=== PATIENT | female | born 1985 | race African-American/Black ===

== ENCOUNTER 2017-05-30 17:41 | Emergency (ER) | payer MEDICAID, OTHER ==
[~2017-05-30] VITALS: Ht 157.5 cm; Wt 108.9 kg
[~2017-05-30 17:41] MED LIST: METR0.7528 VAGINAL
[2017-05-30 17:43] VITALS: BP 136/75; PULSE 91; RESP 20; TEMP 98.1; O2SAT 100
[2017-05-30] MEDS ORDERED: iron PO (18:02)
[2017-05-30] MEDS ORDERED: ONDANSETRON ODT 4 MG TAB PO ONE (18:15)
[2017-05-30] MEDS ORDERED: ZOFR4TAB3 SL (18:18)
--- NOTE | 2017-05-30 18:22 | PD ---
HPI Chief Complaint: GI Complaint Time Seen by Provider: 17:58 Travel History International Travel<30 days: No Contact w/Intl Traveler<30days: No Traveled to known affect area: No History of Present Illness HPI The patient was seen and examined in the presence of the nurse. This patient complains of a one-day history of nausea and vomiting and diarrhea. She's had 3 episodes of diarrhea today. It's liquid and runny without blood or mucus. She's had no fever. Severity is moderate. No ill contacts. She has had some intermittent diffuse abdominal cramping but nothing sustained. No history of abdominal problems. No vaginal discharge or bleeding. PFSH Past Medical History Anemia: Yes Diminished Hearing: No Influenza Vaccination: No ?: Not LMP: 04/2017 Past Surgical History Section: Yes Social History Alcohol Use: No Tobacco Use: No Substance Use: No Allergies-Medications (Allergen,Severity, Reaction): Coded Allergies: No Known Allergies (Verified Adverse Reaction, Unknown, 05/30/17) Reported Meds & Prescriptions Reported Meds & Active Scripts Active Zofran Odt (Ondansetron Odt) 4 Mg Tab 4 Mg SL Q6HR PRN Metrogel Vaginal Gel (Metronidazole Vaginal Gel) 0.75 % Gel 1 Appl VAGINAL HS Reported [iron] 27 Mg PO DAILY Review of Systems General / Constitutional: No: Fever HENT: No: Headaches Cardiovascular: No: Chest Pain or Discomfort Respiratory: No: Cough Gastrointestinal: Positive: Nausea, Vomiting, Diarrhea Physical Exam Narrative GENERAL: Well-nourished, well-developed patient in no apparent distress. SKIN: Focused skin assessment reveals no rash and nodules. Skin is Warm and dry. HEAD: Atraumatic. Normocephalic. EYES: Pupils equal and round. No scleral icterus. No injection or drainage. ENT: No nasal bleeding or discharge. Mucous membranes pink and moist. NECK: Trachea midline. No JVD. CARDIOVASCULAR: Regular rate and rhythm. No murmur appreciated. RESPIRATORY: No accessory muscle use. Clear to auscultation. Breath sounds equal bilaterally. GASTROINTESTINAL: Abdomen soft, minimal diffuse tenderness without rebound or guarding , nondistended. Hepatic and splenic margins not palpable. MUSCULOSKELETAL: No obvious deformities. No clubbing. No cyanosis. No edema. NEUROLOGICAL: Awake and alert. No obvious cranial nerve deficits. Motor grossly within normal limits. Normal speech. PSYCHIATRIC: Appropriate mood and affect; insight and judgment normal. Data Data Last Documented VS Vital Signs Date Time Temp Pulse Resp B/P (MAP) Pulse Ox O2 Delivery O2 Flow Rate FiO2 05/30/17 17:43 98.1 91 20 136/75 (95) 100 Orders Orders Ondansetron Odt (Zofran Odt) (05/30/17 18:15) Ed Urine Pregnancytest Poc (05/30/17 18:18) MDM Medical Decision Making Medical Screen Exam Complete: Yes Emergency Medical Condition: Yes Medical Record Reviewed: Yes Differential Diagnosis Gastroenteritis, colitis, food poisoning Narrative Course I have reviewed the patient's electronic medical record. Urine is negative Vital signs and normal She is well-hydrated Has a soft benign abdomen without any localized tenderness No clinical suspicion of appendicitis. She is having primarily diarrhea with some nausea and vomiting I gave her dose of Zofran and prescription for same I have recommended clear liquids for 24 hours, then gradually advance as tolerated. Advised to return if she worsens Diagnosis Primary Impression: Nausea vomiting and diarrhea Additional Instructions: The patient was advised to follow up with their physician and return if they worsen. I have recommended clear liquids for 24 hours, then gradually advance as tolerated. Med/Other Pt SpecificInfo: Prescription(s) given Scripts Ondansetron Odt (Zofran Odt) 4 Mg Tab 4 MG SL Q6HR Y for Nausea/Vomiting, #12 TAB 0 Refills Prov: Kyle Felton MD 05/30/17 Disposition: 01 DISCHARGE HOME Condition: Stable Kyle Felton MD May 30, 2017 18:22
[2017-06-03] MEDS ORDERED: LEVO1IUD4 I-UTERINE (15:45)
[2017-06-10] MEDS ORDERED: METR1TAB76 PO (10:49)
== END 2017-05-30 18:34 | disposition home or self-care (01) ==
LOC: PHED 17:41
DX: R11.2 Nausea with vomiting, unspecified (principal); R19.7 Diarrhea, unspecified; R10.84 Generalized abdominal pain; Z86.2 Personal history of diseases of the blood and blood-forming organs and certain disorders involving the immune mechanism
CPT/HCPCS: 84703; 99283

== ENCOUNTER 2017-07-27 07:02 | Emergency (ER) | payer MEDICAID ==
[~2017-07-27] VITALS: Ht 154.9 cm; Wt 109.0 kg
[~2017-07-27 07:02] MED LIST changes: +LEVO1IUD4 I-UTERINE; -METR0.7528 VAGINAL; +METR1TAB76 PO; +ZOFR4TAB3 SL; +iron PO
[2017-07-27 07:03] VITALS: BP 138/83; PULSE 96; RESP 16; TEMP 98.5; O2SAT 98
[2017-07-27] MEDS ORDERED: FERR325T18 PO (07:19)
[2017-07-27] MEDS ORDERED: SODIUM CHLORIDE 0.9% FLUSH 10 ML FLUSH IVF PRN (07:30)
[2017-07-27] MEDS ORDERED: ONDANSETRON HCL 4 MG/2 ML VIAL IVP ONE (07:30)
--- NOTE | 2017-07-27 07:38 | PD ---
HPI . Abdominal pain Chief Complaint: Complaint Time Seen by Provider: 07:25 Travel History International Travel<30 days: No Contact w/Intl Traveler<30days: No Traveled to known affect area: No History of Present Illness HPI Patient presents with chief complaint of right lower quadrant abdominal pain. Onset was yesterday. Pain is exacerbated by lying down and improved by sitting upright. Pain has been unrelieved by warm towels. Pain rated 8/10. Associated with dysuria, frequency and urgency which started about a week ago. She reports the insertion of an IUD in May. She reports no problems with the IUD since the insertion. That is, she did not have any unusual cramping, pain or bleeding following the insertion of the IUD. [facility] Past Medical History Anemia: Yes Diminished Hearing: No ?: Not LMP: nov-iud recently placed Past Surgical History Section: Yes Social History Alcohol Use: No Tobacco Use: No Substance Use: No Allergies-Medications (Allergen,Severity, Reaction): Coded Allergies: No Known Allergies (Verified Adverse Reaction, Unknown, 07/27/17) Reported Meds & Prescriptions Reported Meds & Active Scripts Active Pyridium (Phenazopyridine HCl) 200 Mg Tablet 1 Tab PO Q6HR Macrobid (Nitrofurantoin Monoh/Nitrofur Macro) 100 Mg Cap 100 Mg PO BID 5 Days Reported Ferrous Sulfate 325 Mg (65 Mg Iron) Tablet 325 Mg PO DAILY Review of Systems Except as stated in HPI: all other systems reviewed are Neg General / Constitutional: No: Fever, Chills Cardiovascular: No: Chest Pain or Discomfort Respiratory: Positive: Cough, No: Shortness of Breath Gastrointestinal: Positive: Abdominal Pain, No: Nausea, Vomiting, Diarrhea Genitourinary: Positive: Urgency, Frequency, Dysuria, Vaginal Bleeding ( vaginal spotting), Other (no vaginal itching), No: Discharge Physical Exam Narrative GENERAL: Awake and alert and in no acute distress. SKIN: warm/dry. HEAD: Normocephalic. Atraumatic. EYES: Pupils equal and round. No scleral icterus. No injection or drainage. ENT: No nasal bleeding or discharge. Mucous membranes pink and moist. NECK: Trachea midline. Full range of motion without pain.. CARDIOVASCULAR: Regular rate and rhythm. RESPIRATORY: No accessory muscle use. Clear to auscultation. Breath sounds equal bilaterally. GASTROINTESTINAL: Abdomen soft. Minimal right-sided tenderness with no guarding or rebound. Negative Borrego sign. No tenderness in the right upper quadrant. Bowel sounds present. Nondistended. MUSCULOSKELETAL: No obvious deformities. NEUROLOGICAL: Awake and alert. No obvious cranial nerve deficits. Motor grossly within normal limits. Normal speech. PSYCHIATRIC: Appropriate mood and affect; insight and judgment normal. Data Data Last Documented VS Vital Signs Date Time Temp Pulse Resp B/P (MAP) Pulse Ox O2 Delivery O2 Flow Rate FiO2 07/27/17 07:03 98.5 96 16 138/83 (101) 98 Orders Orders Complete Blood Count With Diff (07/27/17 07:25) Basic Metabolic Panel (Bmp) (07/27/17 07:25) Urinalysis - C+S If Indicated (07/27/17 07:25) Sodium Chloride 0.9% Flush (Ns Flush) (07/27/17 07:30) Ondansetron Inj (Zofran Inj) (07/27/17 07:30) Ed Urine Pregnancytest Poc (07/27/17 07:25) Ct Abd/Pel W/O Iv Contrast (07/27/17 07:25) Morphine Inj (Morphine Inj) (07/27/17 07:45) Urine Culture (07/27/17 07:41) Ceftriaxone Inj (Rocephin Inj) (07/27/17 08:15) Labs Laboratory Tests Test 07/27/17 07:41 White Blood Count 9.9 TH/MM3 Red Blood Count 4.23 MIL/MM3 Hemoglobin 9.8 GM/DL Hematocrit 31.4 % Mean Corpuscular Volume 74.1 FL Mean Corpuscular Hemoglobin 23.1 PG Mean Corpuscular Hemoglobin Concent 31.1 % Red Cell Distribution Width 16.0 % Platelet Count 496 TH/MM3 Mean Platelet Volume 7.7 FL Neutrophils (%) (Auto) 67.3 % Lymphocytes (%) (Auto) 21.3 % Monocytes (%) (Auto) 9.3 % Eosinophils (%) (Auto) 1.7 % Basophils (%) (Auto) 0.4 % Neutrophils # (Auto) 6.7 TH/MM3 Lymphocytes # (Auto) 2.1 TH/MM3 Monocytes # (Auto) 0.9 TH/MM3 Eosinophils # (Auto) 0.2 TH/MM3 Basophils # (Auto) 0.0 TH/MM3 CBC Comment AUTO DIFF Differential Comment AUTO DIFF CONFIRMED Platelet Estimate HIGH Platelet Morphology Comment NORMAL Ovalocytes 1+ Urine Collection Type VOIDED Urine Color YELLOW Urine Turbidity MOD Urine pH 7.0 Urine Specific Gilchrist 1.010 Urine Protein 30 mg/dL Urine Glucose (UA) NEG mg/dL Urine Ketones NEG mg/dL Urine Occult Blood LARGE Urine Nitrite NEG Urine Bilirubin NEG Urine Leukocyte Esterase LARGE Urine RBC INNUM /hpf Urine WBC INNUM /hpf Urine WBC Clumps FEW Urine Squamous Epithelial Cells >8 /hpf Urine Bacteria FEW /hpf Microscopic Urinalysis Comment CULTURE INDICATED Blood Urea Nitrogen 8 MG/DL Creatinine 0.67 MG/DL Random Glucose 118 MG/DL Calcium Level 8.2 MG/DL Sodium Level 136 MEQ/L Potassium Level 3.8 MEQ/L Chloride Level 104 MEQ/L Carbon Dioxide Level 24.2 MEQ/L Anion Gap 8 MEQ/L Estimat Glomerular Filtration Rate 122 ML/MIN [facility] Medical Decision Making Medical Screen Exam Complete: Yes Emergency Medical Condition: Yes Differential Diagnosis Differential diagnosis of abdominal pain includes but is not limited to gastritis, pancreatitis, hepatitis, gastroenteritis, gallbladder disease, constipation, urinary retention, UTI, peptic ulcer disease, diverticulitis or appendicitis Narrative Course This patient presents with a chief complaint of right lower quadrant abdominal pain. The pain was preceded by urinary tract symptoms including dysuria, frequency and urgency. She does not have any concerning GI symptoms such as vomiting or diarrhea. She has not been running a fever. Her abdominal exam shows mild right lower quadrant tenderness. CBC & BMP Diagram 07/27/17 07:41 Calcium Level 8.2 L UA>>large blood, large LE, innum RBCs, innum WBCs, few WBC clumps, few bact CT: 1. 0.4 cm cyst in the right ovary. 2. Incidental IUD. 3. The examination is otherwise within normal limits. This patient will be treated with Rocephin here and then discharged on Macrobid and Pyridium. Diagnosis Primary Impression: Abdominal pain Qualified Codes: R10.31 - Right lower quadrant pain Additional Impression: Urinary tract infection Qualified Codes: N30.00 - Acute cystitis without hematuria Patient Instructions: General Instructions, Urinary Tract Infection in Women ( [place]) Med/Other Pt SpecificInfo: Prescription(s) given Scripts Phenazopyridine HCl (Pyridium) 200 Mg Tablet 1 TAB PO Q6HR for Dysuria, #10 Prov: Oeters,Mayuri Baca MD 07/27/17 Nitrofurantoin Monohydrate Macrocrystals (Macrobid) 100 Mg Cap 100 MG PO BID for Infection for 5 Days, #10 CAP 0 Refills Prov: Mayuri Block MD 07/27/17 Disposition: 01 DISCHARGE HOME Condition: Stable Mayuri Block MD Jul 27, 2017 07:38
[2017-07-27] MEDS ORDERED: MORPHINE SULFATE 2 MG/ML INJ IV PUSH ONE (07:45)
[2017-07-27 07:47] LABS: BILIRUBIN, URINE NEG (NEG); BLOOD, URINE LARGE (NEG); GLUCOSE,URINE NEG (NEG); KETONE, URINE NEG (NEG); NITRITE,URINE NEG (NEG); URINE LEUKOCYTE ESTERASE LARGE (NEG)
[2017-07-27 07:49] LABS: AUTOMATED NEUTROPHIL # 6.7 TH/MM3 (1.8-7.7); BASOPHIL % 0.4 % (0.0-2.0); EOSINOPHIL # 0.2 TH/MM3 (0-0.4); EOSINOPHIL % 1.7 % (0.0-4.0); HEMATOCRIT 31.4 % (35.0-46.0); HEMOGLOBIN 9.8 GM/DL (11.6-15.3); LYMPH % 21.3 % (9.0-44.0); LYMPHOCYTE # 2.1 TH/MM3 (1.0-4.8); MEAN CELL VOLUME 74.1 FL (80.0-100.0); MEAN CORPUSCULAR HEMOGLOBIN 23.1 PG (27.0-34.0); MEAN CORPUSCULAR HGB CONC 31.1 % (32.0-36.0); MEAN PLATELET VOLUME 7.7 FL (7.0-11.0); MONO % 9.3 % (0.0-8.0); MONOCYTE # 0.9 TH/MM3 (0-0.9); NEUT % 67.3 % (16.0-70.0); PLATELET COUNT 496 TH/MM3 (150-450); RED BLOOD COUNT 4.23 MIL/MM3 (4.00-5.30); WHITE BLOOD COUNT 9.9 TH/MM3 (4.0-11.0)
[2017-07-27 07:55] LABS: URINE COLOR YELLOW (YELLW/STRAW)
[2017-07-27 07:57] LABS: BACTERIA, URINE FEW /hpf; CALCIUM 8.2 MG/DL (8.5-10.1); RBC, URINE INNUM /hpf (0-3); SQUAMOUS EPITHELIAL CELL URINE >8 /hpf (0-5); WBC, URINE INNUM /hpf (0-5); WHITE BLOOD CELL CLUMPS FEW
[2017-07-27 07:58] LABS: BICARBONATE 24.2 MEQ/L (21.0-32.0)
[2017-07-27 08:01] LABS: CREATININE 0.67 MG/DL (0.50-1.00)
[2017-07-27] MEDS ORDERED: PHEN-510 PO (08:15)
[2017-07-27] MEDS ORDERED: cefTRIAXone INJ 1,000 MG in SODIUM CHLORIDE 0.9% INJ 100 ML IV ONE (08:15)
[2017-07-27] MEDS ORDERED: MACR100C2 PO (08:15)
[2017-07-27 08:16] LABS: OVALOCYTES 1+ (NORMAL)
--- NOTE | 2017-07-27 08:28 | RADRPT ---
EXAM DATE/TIME: 07/27/2017 07:54 [place] COMPARISON: No previous studies available for comparison. INDICATIONS : Right sided abdominal pain with urinary burning and frequency. ORAL CONTRAST: No oral contrast ingested. RADIATION DOSE: 22.43 CTDIvol (mGy) MEDICAL HISTORY : None SURGICAL HISTORY : section. ENCOUNTER: Initial ACUITY: 3 days PAIN SCALE: 4/10 LOCATION: Right abdomen TECHNIQUE: Volumetric scanning of the abdomen and pelvis was performed. Using automated exposure control and ad justment of the mA and/or kV according to patient size, radiation dose was kept as low as reasonably achievable to obtain optimal diagnostic quality images. DICOM format image data is available electro nically for review and comparison. FINDINGS: LOWER LUNGS: The visualized lower lungs are clear. LIVER: Homogeneous density without lesion. There is no dilation of the biliary tree. No calcified gallston es. SPLEEN: Normal size without lesion. PANCREAS: Within normal limits. KIDNEYS: Normal in size and shape. There is no mass, stone, or hydronephrosis. ADRENAL GLANDS: Within normal limits. VASCULAR: There is no aortic aneurysm. BOWEL/MESENTERY: The stomach, small bowel, and colon demonstrate no acute abnormality. There is no free intraperitone al air or fluid. ABDOMINAL WALL: Within normal limits. RETROPERITONEUM: There is no lymphadenopathy. BLADDER: No wall thickening or mass. REPRODUCTIVE: Incidental note is made of an IUD. The examination also demonstrates a 2.4 cm cyst within the right o vary. INGUINAL: There is no lymphadenopathy or hernia. MUSCULOSKELETAL: Within normal limits for patient age. CONCLUSION: 1. 0.4 cm cyst in the right ovary. 2. Incidental IUD. 3. The examination is otherwise within normal limits. Kleber Faulkner MD on July 27, 2017 at 8:21 Board Certified Radiologist. This report was verified electronically.
[2017-07-27 08:45] VITALS: BP 103/61; PULSE 82; RESP 16; O2SAT 100
[2017-07-27 09:42] VITALS: BP 156/74; PULSE 74; RESP 16; O2SAT 98
[2017-08-10] MEDS ORDERED: OSEL75 PO (15:19)
== END 2017-07-27 10:33 | disposition home or self-care (01) ==
LOC: PHED 07:02
DX: R10.31 Right lower quadrant pain (principal); N30.00 Acute cystitis without hematuria; D64.9 Anemia, unspecified
CPT/HCPCS: 74176; 80048; 81001; 84703; 85025; 87086; 96374; 96375; 99285; J0696; J2270; J2405

== ENCOUNTER 2017-09-03 16:00 | Emergency (ER) | payer MEDICAID ==
[~2017-09-03] VITALS: Ht 154.9 cm; Wt 110.7 kg
[~2017-09-03 16:00] MED LIST changes: +FERR325T18 PO; -METR1TAB76 PO; +OSEL75 PO; -ZOFR4TAB3 SL; -iron PO
[2017-09-03 16:10] VITALS: BP 151/79; PULSE 102; RESP 16; TEMP 98.6; O2SAT 100
--- NOTE | 2017-09-03 16:36 | PD ---
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 This patient complains of vaginal bleeding. She's had intermittent vaginal bleeding problems for the last 3 months, ever since her IUD was placed. She called her [employer] [employer] WORKER physician but was told to come here because they couldn't fit her in. No presyncopal symptoms. No vaginal discharge other than bleeding. Symptoms severity is moderate. No exacerbating factors. No alleviating factors. PFSH Past Medical History Anemia: Yes Diminished Hearing: No ?: Unknown LMP: 08/16/17 Past Surgical History Section: Yes Social History Alcohol Use: No Tobacco Use: No Substance Use: No Allergies-Medications (Allergen,Severity, Reaction): Coded Allergies: No Known Allergies (Verified Adverse Reaction, Unknown, 09/03/17) Reported Meds & Prescriptions Reported Meds & Active Scripts Active Reported Ferrous Sulfate 325 Mg (65 Mg Iron) Tablet 325 Mg PO DAILY Review of Systems General / Constitutional: No: Fever Eyes: No: Visual changes HENT: No: Headaches Cardiovascular: No: Chest Pain or Discomfort Respiratory: No: Shortness of Breath Gastrointestinal: No: Abdominal Pain Genitourinary: Positive: Vaginal Bleeding, No: Dysuria Musculoskeletal: No: Pain Skin: No Rash Neurologic: No: Weakness Psychiatric: No: Depression Endocrine: No: Polydipsia Hematologic/Lymphatic: No: Easy Bruising Physical Exam Narrative GENERAL: Well-nourished, well-developed patient in no apparent distress. SKIN: Focused skin assessment reveals no rash and nodules. Skin is Warm and dry. HEAD: Atraumatic. Normocephalic. EYES: Pupils equal and round. No scleral icterus. No injection or drainage. ENT: No nasal bleeding or discharge. Mucous membranes pink and moist. NECK: Trachea midline. No JVD. CARDIOVASCULAR: Regular rate and rhythm. No murmur appreciated. RESPIRATORY: No accessory muscle use. Clear to auscultation. Breath sounds equal bilaterally. GASTROINTESTINAL: Abdomen soft, non-tender, nondistended. Hepatic and splenic margins not palpable. MUSCULOSKELETAL: No obvious deformities. No clubbing. No cyanosis. No edema. NEUROLOGICAL: Awake and alert. No obvious cranial nerve deficits. Motor grossly within normal limits. Normal speech. PSYCHIATRIC: Appropriate mood and affect; insight and judgment normal. Data Data Last Documented VS Vital Signs Date Time Temp Pulse Resp B/P (MAP) Pulse Ox O2 Delivery O2 Flow Rate FiO2 09/03/17 16:10 98.6 102 16 151/79 (103) 100 Orders Orders Ed Urine Pregnancytest Poc (09/03/17 16:29) Complete Blood Count With Diff (09/03/17 16:29) Iv Access Insert/Monitor (09/03/17 16:29) Labs Laboratory Tests Test 09/03/17 16:34 White Blood Count 9.9 TH/MM3 Red Blood Count 4.17 MIL/MM3 Hemoglobin 10.3 GM/DL Hematocrit 31.0 % Mean Corpuscular Volume 74.5 FL Mean Corpuscular Hemoglobin 24.8 PG Mean Corpuscular Hemoglobin Concent 33.2 % Red Cell Distribution Width 18.9 % Platelet Count 509 TH/MM3 Mean Platelet Volume 7.8 FL Neutrophils (%) (Auto) 57.2 % Lymphocytes (%) (Auto) 28.1 % Monocytes (%) (Auto) 10.2 % Eosinophils (%) (Auto) 2.0 % Basophils (%) (Auto) 2.5 % Neutrophils # (Auto) 5.7 TH/MM3 Lymphocytes # (Auto) 2.8 TH/MM3 Monocytes # (Auto) 1.0 TH/MM3 Eosinophils # (Auto) 0.2 TH/MM3 Basophils # (Auto) 0.2 TH/MM3 CBC Comment AUTO DIFF MDM Medical Decision Making Medical Screen Exam Complete: Yes Emergency Medical Condition: Yes Medical Record Reviewed: Yes Differential Diagnosis Ectopic, dysfunction uterine bleeding, fibroids, symptomatic anemia Narrative Course I have reviewed the patient's electronic medical record. Reviewed her last visit here. She has O+ blood type. IV placed CBC shows hemoglobin of 10.3 which is higher than prior Urine is negative Stable hemodynamically for outpatient follow-up with [employer]. Diagnosis Primary Impression: Vaginal bleeding Additional Instructions: Follow-up with [employer] CL[employer] Med/Other Pt SpecificInfo: Other Disposition: 01 DISCHARGE HOME Condition: Stable Kyle Felton MD Sep 03, 2017 16:36
[2017-09-03 16:45] LABS: AUTOMATED NEUTROPHIL # 5.7 TH/MM3 (1.8-7.7); BASOPHIL # 0.2 TH/MM3 (0-0.2); BASOPHIL % 2.5 % (0.0-2.0); EOSINOPHIL # 0.2 TH/MM3 (0-0.4); HEMOGLOBIN 10.3 GM/DL (11.6-15.3); LYMPH % 28.1 % (9.0-44.0); LYMPHOCYTE # 2.8 TH/MM3 (1.0-4.8); MEAN CELL VOLUME 74.5 FL (80.0-100.0); MEAN CORPUSCULAR HEMOGLOBIN 24.8 PG (27.0-34.0); MEAN CORPUSCULAR HGB CONC 33.2 % (32.0-36.0); MEAN PLATELET VOLUME 7.8 FL (7.0-11.0); MONO % 10.2 % (0.0-8.0); NEUT % 57.2 % (16.0-70.0); PLATELET COUNT 509 TH/MM3 (150-450); RED BLOOD COUNT 4.17 MIL/MM3 (4.00-5.30); RED CELL DISTRIBUTION WIDTH 18.9 % (11.6-17.2); WHITE BLOOD COUNT 9.9 TH/MM3 (4.0-11.0)
== END 2017-09-03 17:44 | disposition home or self-care (01) ==
LOC: PHED 16:00
DX: N93.9 Abnormal uterine and vaginal bleeding, unspecified (principal); Z97.5 Presence of (intrauterine) contraceptive device
CPT/HCPCS: 84703; 85025; 99283

== ENCOUNTER 2018-01-07 09:28 | Emergency (ER) | payer MEDICAID ==
[~2018-01-07 09:28] MED LIST changes: -OSEL75 PO
[2018-01-07 09:30] VITALS: BP 180/84; PULSE 80; RESP 20; TEMP 98.4; O2SAT 99
[2018-01-07] MEDS ORDERED: DOXY100C PO (10:06)
[2018-01-07] MEDS ORDERED: IBUP1TAB7 PO (10:06)
[2018-01-07] MEDS ORDERED: METR-1 PO (10:06)
--- NOTE | 2018-01-07 10:10 | PD ---
HPI . 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 She has had intermittent vaginal bleeding since that time. She states that she has been bleeding continuously for the last couple of weeks and now has pelvic pain. The pelvic pain is described as crampy and is rated 8/10. She states that she is also feeling dizzy. She has a history of anemia. She states that she last saw her practice manager 3 months ago. She and her state that the practice manager told them that the bleeding should stop by the end of November. She has continued to bleed into December so subsequently presents here. She has not gone back to see the practice manager. [facility] Past Medical History Anemia: Yes Diminished Hearing: No ?: Not LMP: 1-2 WEEKS AGO Past Surgical History Section: Yes Social History Alcohol Use: No Tobacco Use: No Substance Use: No Allergies-Medications (Allergen,Severity, Reaction): Coded Allergies: No Known Allergies (Verified Adverse Reaction, Unknown, 01/07/18) Reported Meds & Prescriptions Reported Meds & Active Scripts Active Flagyl (Metronidazole) 500 Mg Tab 500 Mg PO BID 7 Days Doxycycline Hyclate 100 Mg Cap 100 Mg PO BID Ibuprofen 800 Mg Tab 800 Mg PO Q8H PRN Reported Ferrous Sulfate 325 Mg (65 Mg Iron) Tablet 325 Mg PO DAILY Review of Systems Except as stated in HPI: all other systems reviewed are Neg Physical Exam Narrative GENERAL: Awake and alert and in no acute distress. SKIN: Warm and dry. Normal color and turgor. HEAD: Normocephalic/atraumatic. EYES: Pupils are equal. Extraocular movements are intact. NECK: Normal range of motion. Supple. CARDIOVASCULAR: Regular rate and rhythm. RESPIRATORY: Nonlabored respirations. Normal sats. : No blood noted in the vaginal vault. There is a string through the cervical loss compatible with the IUD. She reports cervical motion tenderness on bimanual exam. She also has bilateral adnexal tenderness. MUSCULOSKELETAL: Atraumatic. Normal muscle tone. NEUROLOGICAL: A and O 3. Nonfocal. PSYCHIATRIC: Appropriate mood and affect. Data Data Last Documented VS Vital Signs Date Time Temp Pulse Resp B/P (MAP) Pulse Ox O2 Delivery O2 Flow Rate FiO2 01/07/18 10:41 88 18 148/76 (100) 87 17 162/98 (119) 89 18 163/92 (115) 01/07/18 09:30 98.4 99 Orders Orders Gc And Chlamydia Pcr (01/07/18 09:45) Wet Prep Profile (01/07/18 09:45) Ed Urine Pregnancytest Poc (01/07/18 09:45) Orthostatic Vital Signs (01/07/18 09:45) Ceftriaxone Inj (Rocephin Inj) (01/07/18 10:15) Lidocaine 1% Inj (50 Ml) (Xylocaine 1% I (01/07/18 10:15) Ketorolac Inj (Toradol Inj) (01/07/18 10:15) Complete Blood Count With Diff (01/07/18 10:10) Lidocaine Pf 1% Inj (Xylocaine-Mpf 1% In (01/07/18 10:14) Labs Laboratory Tests Test 01/07/18 10:00 01/07/18 10:31 Clue Cells (Wet Prep) NONE SEEN Vaginal Trichomonas (Wet Prep) NONE SEEN Vaginal Yeast (Wet Prep) NONE SEEN White Blood Count 8.3 TH/MM3 Red Blood Count 4.51 MIL/MM3 Hemoglobin 10.0 GM/DL Hematocrit 31.5 % Mean Corpuscular Volume 69.8 FL Mean Corpuscular Hemoglobin 22.3 PG Mean Corpuscular Hemoglobin Concent 31.9 % Red Cell Distribution Width 17.9 % Platelet Count 595 TH/MM3 Mean Platelet Volume 7.5 FL Neutrophils (%) (Auto) 62.8 % Lymphocytes (%) (Auto) 29.6 % Monocytes (%) (Auto) 6.9 % Eosinophils (%) (Auto) 0.3 % Basophils (%) (Auto) 0.4 % Neutrophils # (Auto) 5.2 TH/MM3 Lymphocytes # (Auto) 2.5 TH/MM3 Monocytes # (Auto) 0.6 TH/MM3 Eosinophils # (Auto) 0.0 TH/MM3 Basophils # (Auto) 0.0 TH/MM3 CBC Comment AUTO DIFF MDM Medical Decision Making Medical Screen Exam Complete: Yes Emergency Medical Condition: Yes Differential Diagnosis Differential diagnosis of pelvic pain includes but is not limited to UTI, PID, ectopic , spontaneous AB, constipation, viral illness Narrative Course This is a patient with an IUD since May. She has had intermittent vaginal bleeding since that time. She states that she has been bleeding continuously for the last couple of weeks and now has pelvic pain. She states that she last saw her practice manager 3 months ago. She and her state that the practice manager told them that the bleeding should stop by the end of November. She has continued to bleed into December so subsequently presents here. She has not gone back to see the practice manager. On exam, the IUD string is visible in the cervical loss. She does have cervical motion tenderness and bilateral adnexal tenderness. She will be treated presumptively for PID. She will be encouraged to follow-up with her practice manager for any other issues related to her IUD. HCG is negative. Wet prep is negative. CBC Diagram 01/07/18 10:31 Diagnosis Primary Impression: Pelvic pain Patient Instructions: General Instructions, Pelvic Pain (ED) Additional Instructions: Follow-up with your practice manager for any further concerns regarding the IUD Med/Other Pt SpecificInfo: Prescription(s) given Scripts Metronidazole (Flagyl) 500 Mg Tab 500 MG PO BID for Infection for 7 Days, #14 TAB 0 Refills Prov: Mayuri Block MD 01/07/18 Doxycycline Hyclate (Doxycycline Hyclate) 100 Mg Cap 100 MG PO BID for Infection, #20 CAP 0 Refills Prov: Mayuri Block MD 01/07/18 Ibuprofen (Ibuprofen) 800 Mg Tab 800 MG PO Q8H Y for Pain/Inflammation, #60 TAB 0 Refills Prov: Mayuri Block MD 01/07/18 Disposition: 01 DISCHARGE HOME Condition: Stable Mayuri Block MD Jan 07, 2018 10:10
[2018-01-07] MEDS ORDERED: LIDOCAINE HCL 1% PF 2 ML VIAL ONE (10:14)
[2018-01-07] MEDS ORDERED: LIDOCAINE HCL 1% 50 ML VIAL XX ONE (10:15)
[2018-01-07] MEDS ORDERED: cefTRIAXone 250 MG VIAL IM ONE (10:15)
[2018-01-07] MEDS ORDERED: KETOROLAC TROMETHAMINE 60 MG/2 ML (IM) VIAL IM ONE (10:15)
[2018-01-07 10:39] LABS: AUTOMATED NEUTROPHIL # 5.2 TH/MM3 (1.8-7.7); BASOPHIL % 0.4 % (0.0-2.0); EOSINOPHIL % 0.3 % (0.0-4.0); HEMATOCRIT 31.5 % (35.0-46.0); LYMPH % 29.6 % (9.0-44.0); LYMPHOCYTE # 2.5 TH/MM3 (1.0-4.8); MEAN CELL VOLUME 69.8 FL (80.0-100.0); MEAN CORPUSCULAR HEMOGLOBIN 22.3 PG (27.0-34.0); MEAN CORPUSCULAR HGB CONC 31.9 % (32.0-36.0); MEAN PLATELET VOLUME 7.5 FL (7.0-11.0); MONO % 6.9 % (0.0-8.0); MONOCYTE # 0.6 TH/MM3 (0-0.9); NEUT % 62.8 % (16.0-70.0); PLATELET COUNT 595 TH/MM3 (150-450); RED BLOOD COUNT 4.51 MIL/MM3 (4.00-5.30); RED CELL DISTRIBUTION WIDTH 17.9 % (11.6-17.2); WHITE BLOOD COUNT 8.3 TH/MM3 (4.0-11.0)
[2018-01-07 10:41] VITALS: BP_SYST 148; BP_SYST 162; BP_SYST 163; BP_DIAS 76; BP_DIAS 92; BP_DIAS 98; RESP 17; RESP 18
[2018-01-07 11:10] LABS: KERATOCYTES OCC (NORMAL); OVALOCYTES 1+ (NORMAL); TARGET CELLS 1+ (NORMAL)
[2018-01-07 11:13] VITALS: BP 151/86
== END 2018-01-07 11:15 | disposition home or self-care (01) ==
LOC: PHED 09:28
DX: R10.2 Pelvic and perineal pain (principal); N93.9 Abnormal uterine and vaginal bleeding, unspecified; R42 Dizziness and giddiness; D64.9 Anemia, unspecified
CPT/HCPCS: 84703; 85025; 87210; 87491; 87591; 96372; 99283; J0696; J1885